=== PATIENT | male | born 1950 | race African-American/Black ===

== ENCOUNTER 2018-06-29 13:03 | Emergency (ER) | payer MEDICARE ==
[2018-06-29] MEDS ORDERED: Sodium Chloride 0.9% 1,000 ML ONE (13:32)
[2018-06-29] MEDS ORDERED: Ondansetron PF 4 MG/2 ML Vial ONE (13:32)
[2018-06-29] MEDS ORDERED: Morphine 4 MG/ML VIAL ONE (13:34)
[2018-06-29] MEDS ORDERED: Nitroglycerin 0.4 MG TAB (25 Tab Bottle) ONE (13:34)
[2018-06-29 13:57] LABS: #Lymphocytes 1.6 thou/uL (1.20-3.40); #Monocytes 0.3 thou/uL (0.11-0.59); #Neutrophils 2.5 thou/uL (1.40-6.50); %Eosinophils 0.8 % (0.0-10.0); %Lymphocytes 35.3 % (21.0-51.0); %Monocytes 6.2 % (0.0-10.0); %Neutrophils 56.7 % (42.0-75.0); Hemoglobin 13.7 g/dL (14.0-18.0); Mean Corpuscular Hemoglobin 29.8 pg (27.0-31.0); Mean Platelet Volume 7.5 fL (7.4-10.4); Platelet Count 154 thou/uL (130-400); RBC Distribution Width 12.6 % (11.5-14.5); Red Blood Cell (RBC) Count 4.59 mill/uL (4.70-6.10); White Blood Cell (WBC) Count 4.5 thou/uL (4.8-10.8)
[2018-06-29 14:09] LABS: ALT (SGPT) 15 U/L (8-55); AST (SGOT) 16 U/L (5-34); Albumin 4.6 g/dL (3.4-4.8); Alkaline Phosphatase 72 U/L (40-150); Anion Gap 16 mmol/L (10-20); BUN (Urea Nitrogen) 17 mg/dL (8.4-25.7); Bilirubin, Total 1.4 mg/dL (0.2-1.2); Calc. Creatinine Clearance 0 mL/min (70-130); Calcium 10.3 mg/dL (7.8-10.44); Carbon Dioxide 23 mmol/L (23-31); Chloride 102 mmol/L (98-107); Estimated GFR-MDRD 52; Globulin 2.9 g/dL (2.4-3.5); Glucose 141 mg/dL (80-115); Lipase 46 U/L (8-78); Potassium 4.4 mmol/L (3.5-5.1); Protein, Total 7.5 g/dL (5.8-8.1); Sodium 137 mmol/L (136-145)
[2018-06-29 14:42] LABS: Amphetamine Not Detected (NotDetected); Barbiturates Screen Not Detected (NotDetected); Benzodiazepine Screen Not Detected (NotDetected); Cocaine Metabolite Screen Detected (NotDetected); Medtox Control Line Valid? VALID (VALID); Methadone Not Detected (NotDetected); Methamphetamine Not Detected (NotDetected); Opiate Screen Detected (NotDetected); Oxycodone Screen Not Detected (NotDetected); Phencyclidine (PCP) Not Detected (NotDetected); THC/Cannabinoid Screen Detected (NotDetected); Tricyclic Screen Not Detected (NotDetected)
--- NOTE | 2018-06-29 15:12 | RAD ---
PORTABLE AP CHEST XRAY: DATE: 06/29/2018. HISTORY: Chest pain. COMPARISON: None available. FINDINGS: Cardiac silhouette and pulmonary vasculature are within normal limits. The lungs are clear. There i s mild elevation of the right hemidiaphragm. Osseous structures appear intact, although the osseous structures are not well evaluated due to underpenetrated technique of the exam. IMPRESSION: No acute cardiopulmonary process. POS: [facility]
== END 2018-06-29 15:20 | disposition short-term general hospital (02) ==
LOC: NAV ERS 13:03
DX: I10 Essential (primary) hypertension (principal); F14.10 Cocaine abuse, uncomplicated; F43.10 Post-traumatic stress disorder, unspecified; E11.9 Type 2 diabetes mellitus without complications; Z79.4 Long term (current) use of insulin; Z79.899 Other long term (current) drug therapy
CPT/HCPCS: 71045; 80053; 80306; 83690; 84484; 85025; 93005; 94760; 96361; 96374; 96375; J2270; J2405; J7050

== ENCOUNTER 2019-10-09 04:48 | Emergency (ER) | payer SELFPAY ==
[2019-10-09] MEDS ORDERED: Ketorolac Tromethamine 30 MG/ML VIAL ONE (05:46)
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
== END 2019-10-09 06:05 | disposition home or self-care (01) ==
LOC: NAV ERS 04:48
DX: E11.42 Type 2 diabetes mellitus with diabetic polyneuropathy (principal); E78.5 Hyperlipidemia, unspecified; E78.00 Pure hypercholesterolemia, unspecified; I10 Essential (primary) hypertension; F43.10 Post-traumatic stress disorder, unspecified; Z79.84 Long term (current) use of oral hypoglycemic drugs; Z79.899 Other long term (current) drug therapy
CPT/HCPCS: 96372; J1885

== ENCOUNTER 2020-01-08 16:13 | Emergency (ER) | payer OTHER, SELFPAY ==
[2020-01-10 11:40] LABS: SARS-CoV-2 MS2 Positive; SARS-CoV-2 N Gene Negative; SARS-CoV-2 S Gene Negative; SARS-CoV-2 orf1ab Negative
== END 2020-01-08 17:55 | disposition home or self-care (01) ==
LOC: NAV ERS 16:13
DX: Z20.828 Contact with and (suspected) exposure to other viral communicable diseases (principal); F43.10 Post-traumatic stress disorder, unspecified; E11.9 Type 2 diabetes mellitus without complications; I10 Essential (primary) hypertension; Z79.899 Other long term (current) drug therapy; Z79.84 Long term (current) use of oral hypoglycemic drugs
CPT/HCPCS: 87635; 99283; U0003

== ENCOUNTER 2020-06-12 17:55 | Inpatient (IN) | payer MEDICARE, OTHER ==
[2020-06-12] MEDS ORDERED: Dextrose 50% Abboject 50 ML SYRINGE SLOW IVP PRN ×2 (21:23→21:30)
[2020-06-12] MEDS ORDERED: cefTRIAXone\\ROCEPHIN 1 GM VIAL IVPB SCH (22:00)
[2020-06-12] MEDS ORDERED: Sodium Chloride 0.9% 30 ML ONE (23:01)
[2020-06-13 07:07] LABS: #Lymphocytes 0.9 thou/uL (1.20-3.40); #Monocytes 0.3 thou/uL (0.11-0.59); %Basophils 0.5 % (0.0-1.0); %Eosinophils 0.5 % (0.0-10.0); %Lymphocytes 12.4 % (21.0-51.0); %Monocytes 4.2 % (0.0-10.0); %Neutrophils 82.6 % (42.0-75.0); Hemoglobin 9.1 g/dL (14.0-18.0); Mean Corpuscular Hemoglobin 29.3 pg (27.0-31.0); Mean Corpuscular Volume 88.9 fL (78.0-98.0); Mean Platelet Volume 6.7 fL (7.4-10.4); Platelet Count 225 thou/uL (130-400); RBC Distribution Width 12.2 % (11.5-14.5); Red Blood Cell (RBC) Count 3.09 mill/uL (4.70-6.10); White Blood Cell (WBC) Count 7.3 thou/uL (4.8-10.8)
[2020-06-13 07:20] LABS: Anion Gap 15 mmol/L (10-20); BUN (Urea Nitrogen) 65 mg/dL (8.4-25.7); Calc. Creatinine Clearance 20 mL/min (70-130); Calcium 8.1 mg/dL (7.8-10.44); Carbon Dioxide 16 mmol/L (23-31); Chloride 111 mmol/L (98-107); Glucose 109 mg/dL (83-110); Sodium 137 mmol/L (136-145)
[2020-06-13] MEDS: glipiZIDE 5 MG TAB PO SCH ×2 (08:03→16:57)
[2020-06-13] MEDS: Calcitriol 0.25 MCG CAP PO SCH (08:04)
[2020-06-13] MEDS: Ferrous Sulfate 325 MG TAB PO SCH (08:04)
[2020-06-13] MEDS: Sodium Bicarbonate Tab 325 MG TAB PO SCH ×3 (08:08→20:55)
[2020-06-13] MEDS ORDERED: Lisinopril 10 MG TAB PO SCH (09:00)
[2020-06-13] MEDS: Lantus 1000 UNITS/10 ML VIAL SC SCH (09:05)
[2020-06-13] MEDS: Atorvastatin Calcium 10 MG TAB PO SCH (20:55)
[2020-06-13] MEDS: Tamsulosin HCl 0.4 MG CAP PO SCH (20:55)
[2020-06-13] MEDS: cefTRIAXone\\ROCEPHIN 1 GM in Sodium Chloride 0.9% 100 ML IVPB SCH (21:01)
--- NOTE | 2020-06-13 23:40 | HP ---
HISTORY OF PRESENT ILLNESS: The patient is a 70-year-old male with a past medical history positive for hypertension, type 2 diabetes, coronary artery disease, who was recently admitted to [facility] with chest pain, but was found to be in diabetic ketoacidosis with metabolic encephalopathy. He was also found to be in emweo-ch-yrncbxn kidney injury secondary to an acute diagnosis of Enterobacter bacteremia secondary to urinary tract infection. He responded to IV fluids and IV Rocephin, but his renal function never did return to normal and appears to have stabilized with a creatinine of 4 to 5. His diabetic ketoacidosis has resolved and his Accu-Cheks have returned to normal on Lantus and sliding scale insulin. He has been seen by Nephrology and felt that he will eventually require dialysis, but [facility] as an [facility] until that time. He did have some metabolic acidosis, which is being treated with bicarb and phosphate binder. His blood pressure has been well controlled. HOME MEDICATIONS: Lisinopril 20 mg daily, although renal has stated that FIDEL inhibitor should be restricted. He is also on Lantus 25 units every morning and glipizide 20 mg twice daily for his diabetes with a sliding scale moderate for control. Finally, he is on simvastatin 20 mg nightly for hyperlipidemia and coronary disease and on the above-mentioned 0.25 mcg daily and sodium bicarbonate 650 mg 3 times daily. His enterobacter urinary tract infection, he is finishing a course of Rocephin 1 g IV piggyback q. 24 hours for 7 days and he is on tamsulosin for chronic benign prostatic hypertrophy. He did have in addition to the DKA related hyponatremia and dehydration. PAST MEDICAL HISTORY: As mentioned above is positive for the above-mentioned diabetes, hypertension, coronary artery disease. PAST SURGICAL HISTORY: Positive for hernia repair. PSYCHIATRIC HISTORY: Positive for history of PTSD. ALLERGIES: HE HAS NO KNOWN ALLERGIES. SOCIAL HISTORY: He uses marijuana and drinks socially and uses cocaine and cigarettes. He lives at home alone. REVIEW OF SYSTEMS: HEENT: He denies any headaches, dizziness, change in vision, hearing, hoarseness or dysphagia. PULMONARY: He denies cough, sputum production, pneumonia, asthma, or tuberculosis. CARDIOVASCULAR: He denies chest pain, orthopnea, paroxysmal nocturnal dyspnea or edema. GASTROINTESTINAL: He denies nausea, vomiting, diarrhea, constipation, abdominal pain. GENITOURINARY: Denies dysuria, hematuria. He does have mild decreased stream and nocturia x1. NEUROLOGIC: He has no numbness or tingling in his arms or extremities. PHYSICAL EXAMINATION: GENERAL: Shows him to be an elderly white male in no acute distress, oriented x3 and cooperative. VITAL SIGNS: Show temperature 98.1, pulse 78, respirations 20, O2 saturations 95% on room air. HEENT: Pupils are equal, round, and reactive to light and accommodation. Sclerae anicteric. Conjunctivae pale. Oral mucous membranes well hydrated. NECK: Supple. There are no nodes or masses. JVP is not elevated. LUNGS: Clear. CARDIAC: Showed regular rhythm. ABDOMEN: Soft and nontender. EXTREMITIES: Extremities display no edema, clubbing, or cyanosis. NEUROLOGIC: Intact. LABORATORY DATA: Most recent laboratories showed sodium of 140, potassium 5.0, chloride 114, bicarb 17, BUN 72, creatinine 4.5 with a GFR of 16, glucose was 79. Phosphorus 3.2. BNP last week 168. Patient's urinalysis showed pyuria and bacteria and blood culture did show Enterobacter sensitive to Rocephin that the patient is on. ASSESSMENT: A 70-year-old man with a history of diabetes, chronic kidney disease stage 3 and coronary artery disease, who presented with diabetic ketoacidosis, metabolic acidosis and responded to IV fluids, but has had stabilization of his glomerular filtration rate at 16 with chronic kidney disease stage 4 to 5. He has become severely weakened with his recent admission. He was therefore admitted to inpatient rehab to be admitted to [facility] for continued PT. He will finish his course of Rocephin and will have his blood pressure tightly controlled, but his FIDLE inhibitor will be discontinued to hopefully decrease the strain on his kidneys and he was restarted on amlodipine for improved control of his diabetes and continued on his tamsulosin at night. His Rocephin, he will finish his oral course on June 18. He will continue on his glargine 25 units every morning and mild sliding scale as well as glipizide 20 mg twice daily, but this may need to be titrated down, because of his renal failure. He will have case management evaluate him for walker and equipment at home. He will be seen in PT/OT. Job ID: [id number]
[2020-06-14] MEDS: glipiZIDE 5 MG TAB PO SCH (08:21)
[2020-06-14] MEDS: Lantus 1000 UNITS/10 ML VIAL SC SCH (09:10)
[2020-06-14] MEDS: Ferrous Sulfate 325 MG TAB PO SCH (09:10)
[2020-06-14] MEDS: Amlodipine 5 MG TAB PO SCH (09:10)
[2020-06-14] MEDS: Sodium Bicarbonate Tab 325 MG TAB PO SCH ×3 (09:10→20:55)
[2020-06-14] MEDS: Calcitriol 0.25 MCG CAP PO SCH (09:10)
[2020-06-14] MEDS: HumaLOG 300 UNITS/3 ML VIAL SC PRN (12:10)
[2020-06-14] MEDS: Docusate 100 MG CAP PO SCH (20:55)
[2020-06-14] MEDS: Atorvastatin Calcium 10 MG TAB PO SCH (20:55)
[2020-06-14] MEDS: Tamsulosin HCl 0.4 MG CAP PO SCH (20:55)
[2020-06-14] MEDS: cefTRIAXone\\ROCEPHIN 1 GM in Sodium Chloride 0.9% 100 ML IVPB SCH (20:59)
[2020-06-15 06:05] LABS: Anion Gap 13 mmol/L (10-20); BUN (Urea Nitrogen) 58 mg/dL (8.4-25.7); Calc. Creatinine Clearance 22 mL/min (70-130); Calcium 8.5 mg/dL (7.8-10.44); Carbon Dioxide 23 mmol/L (23-31); Chloride 110 mmol/L (98-107); Glucose 101 mg/dL (83-110); Potassium 5.1 mmol/L (3.5-5.1); Sodium 141 mmol/L (136-145)
[2020-06-15] MEDS: Calcitriol 0.25 MCG CAP PO SCH (08:20)
[2020-06-15] MEDS: Ferrous Sulfate 325 MG TAB PO SCH (08:20)
[2020-06-15] MEDS: Sodium Bicarbonate Tab 325 MG TAB PO SCH ×3 (08:20→21:16)
[2020-06-15] MEDS: Docusate 100 MG CAP PO SCH ×2 (08:21→21:16)
[2020-06-15] MEDS: Lantus 1000 UNITS/10 ML VIAL SC SCH (08:22)
[2020-06-15] MEDS: Amlodipine 5 MG TAB PO SCH (08:23)
[2020-06-15] MEDS: HumaLOG 300 UNITS/3 ML VIAL SC PRN ×2 (12:55→21:17)
[2020-06-15] MEDS: Acetaminophen 325 MG TAB PO PRN (21:14)
[2020-06-15] MEDS: cefTRIAXone\\ROCEPHIN 1 GM in Sodium Chloride 0.9% 100 ML IVPB SCH (21:15)
[2020-06-15] MEDS: Atorvastatin Calcium 10 MG TAB PO SCH (21:16)
[2020-06-15] MEDS: Tamsulosin HCl 0.4 MG CAP PO SCH (21:16)
[2020-06-16 06:05] LABS: Anion Gap 11 mmol/L (10-20); BUN (Urea Nitrogen) 48 mg/dL (8.4-25.7); Calc. Creatinine Clearance 26 mL/min (70-130); Calcium 8.3 mg/dL (7.8-10.44); Carbon Dioxide 25 mmol/L (23-31); Chloride 110 mmol/L (98-107); Glucose 121 mg/dL (83-110); Potassium 4.8 mmol/L (3.5-5.1); Sodium 141 mmol/L (136-145)
[2020-06-16] MEDS: Docusate 100 MG CAP PO SCH ×2 (08:07→21:25)
[2020-06-16] MEDS: Calcitriol 0.25 MCG CAP PO SCH (08:07)
[2020-06-16] MEDS: Acetaminophen 325 MG TAB PO PRN ×2 (08:07→17:16)
[2020-06-16] MEDS: Sodium Bicarbonate Tab 325 MG TAB PO SCH ×3 (08:07→21:24)
[2020-06-16] MEDS: Amlodipine 5 MG TAB PO SCH (08:07)
[2020-06-16] MEDS: Ferrous Sulfate 325 MG TAB PO SCH (08:07)
[2020-06-16] MEDS: Lantus 1000 UNITS/10 ML VIAL SC SCH (08:09)
--- NOTE | 2020-06-16 18:58 | PRG ---
DATE OF SERVICE: 06/13/2020 SUBJECTIVE: The patient feels well. No complaints other than constipation. He has been working well with Therapy and has been eating and drinking everything on his plate. OBJECTIVE: VITAL SIGNS: Temperature is 97.2, pulse 83, respirations 18, O2 sats 99% on room air, and blood pressure is 137/74. Lungs: Clear. CARDIAC: Regular rhythm. ABDOMEN: Soft and nontender. LABORATORY DATA: White count 7300, hematocrit 27, and hemoglobin 9. Sodium is 141, potassium 5.1, chloride 110, bicarb 23, BUN 58, creatinine 4.19, and calcium 8.5. ASSESSMENT: 1. Resolving [id number]-acbootp renal failure, stabilizing, apparently at chronic kidney disease 4-5. 2. Diabetes, type 2, controlled to goal with resolved diabetic ketoacidosis. 3. Coronary artery disease, asymptomatic. 4. Urinary tract infection, now resolving on Rocephin. 5. Benign prostatic hypertrophy, improving on tamsulosin. PLAN: 1. Continue PT/ OT. 2. Finish course of Rocephin to finish on 06/18. 3. Continue to monitor oral intake. 4. Start docusate daily for constipation. 5. Continue Accu-Cheks to monitor and titrate and control diabetes. Job ID: [id number]
--- NOTE | 2020-06-16 19:00 | PRG ---
DATE OF SERVICE: 06/14/2020 SUBJECTIVE: The patient feels well. No complaints other than constipation. He is eating well, drinking well, working with Therapy. OBJECTIVE: VITAL SIGNS: Temperature is 97, pulse 88, respirations 18, O2 sats 99% on room air, and blood pressure 171/80. LABORATORY DATA: Electrolytes not done today. Accu-Chek shows hypoglycemia, though an insulin will be decreased tomorrow to 20 units subcu q.a.m. He is having good urine output. He will be continued on tamsulosin. He is having no further evidence of infection, being continued on Rocephin. ASSESSMENT: 1. Resolving urinary tract infection. 2. Stable benign prostatic hypertrophy. 3. Stable mzlwo-mk-uwufndb renal failure, stage 4. 4. Persistent constipation. 5. Hypertension, controlled to goal. PLAN: 1. Continue PT/OT. 2. Increase docusate to twice daily. 3. Repeat BMP in the a.m. 4. Decrease Lantus to 20 units subcu q.a.m. Job ID: [id number]
--- NOTE | 2020-06-16 19:09 | PRG ---
DATE OF SERVICE: 06/15/2020 SUBJECTIVE: The patient feels well. He has had a good bowel movement today and working with Therapy, feels stronger, is eating well. No complications. OBJECTIVE: VITAL SIGNS: Temperature is 97, pulse 94, respirations 20, O2 sats 99% on room air, and blood pressure is 146/67. LABORATORY DATA: Sodium 141, potassium 5.1, chloride 110, bicarb 23, BUN 58, creatinine 4.19, and GFR 17. ASSESSMENT: 1. Fairly stable vdkaq-zy-ymaqohh renal failure, stage 4. 2. Diabetes, insulin dependent, controlled on Lantus, mild sliding scale. 3. Deconditioning, working with Therapy. 4. Constipation, improved with docusate. 5. Urinary tract infection, finishing course of Rocephin and continue Rocephin until 06/18. PLAN: 1. Continue PT/OT. 2. Continue Lantus 20 units daily. 3. Continue to monitor oral intake. 4. Continue to monitor renal function closely. Job ID: [id number]
--- NOTE | 2020-06-16 19:12 | PRG ---
DATE OF SERVICE: 06/16/2020 SUBJECTIVE: The patient feels well, eating well, walking with Therapy, feels he is getting stronger. OBJECTIVE: His creatinine has improved greatly to 3.42 with a GFR increasing from 16 to 22, BUN is also decreased to 48, sodium is 141, potassium 4.8, chloride 110, and bicarb 25. His vital signs show temperature is 97.9, pulse 95, respirations 18, O2 sats 97% on room air, and blood pressure 176/76. ASSESSMENT: 1. Improving nqxhk-jd-lxosbxr renal failure. 2. Hypertension, worsen today. We will monitor closely. Increase oral intake. 3. Urinary tract infection, resolving on Rocephin until 06/18. 4. Deconditioning, improving greatly. PLAN: 1. Continue PT/OT. 2. Continue to monitor blood pressure closely and may need to increase amlodipine to 10 mg daily. 3. Repeat BMP in the a.m., it is improving daily now. 4. Continue tamsulosin for BPH and continue bicarb for improving renal failure. Job ID: [id number]
[2020-06-16] MEDS: Atorvastatin Calcium 10 MG TAB PO SCH (21:25)
[2020-06-16] MEDS: Tamsulosin HCl 0.4 MG CAP PO SCH (21:25)
[2020-06-16] MEDS: cefTRIAXone\\ROCEPHIN 1 GM in Sodium Chloride 0.9% 100 ML IVPB SCH (21:25)
[2020-06-16] MEDS: Gabapentin 100 MG CAP PO SCH (21:25)
[2020-06-17] MEDS: Ferrous Sulfate 325 MG TAB PO SCH (08:37)
[2020-06-17] MEDS: Amlodipine 5 MG TAB PO SCH (08:38)
[2020-06-17] MEDS: Lantus 1000 UNITS/10 ML VIAL SC SCH (08:38)
[2020-06-17] MEDS: Docusate 100 MG CAP PO SCH ×2 (08:38→21:44)
[2020-06-17] MEDS: Sodium Bicarbonate Tab 325 MG TAB PO SCH ×3 (08:38→21:43)
[2020-06-17] MEDS: Calcitriol 0.25 MCG CAP PO SCH (08:38)
--- NOTE | 2020-06-17 16:20 | PRG ---
DATE OF SERVICE: 06/17/2020 SUBJECTIVE: Mr. Coats is resting in bed. He is tolerating his antibiotics. He just finished his lunch. Denies any questions or concerns. OBJECTIVE: VITAL SIGNS: He is afebrile, heart rate 83, respirations 18, oxygen saturation 98% on room air, and blood pressure 152/67. CARDIOVASCULAR SYSTEM: S1 and S2 plus. RESPIRATORY SYSTEM: Normal vesicular breath sounds. ABDOMEN: Soft and nontender. Bowel sounds heard in all quadrants. EXTREMITIES: Without cyanosis or clubbing. CENTRAL NERVOUS SYSTEM: Generalized weakness, otherwise nonfocal. LABORATORY DATA: Blood sugars are 136, 110, 132, 94, and 77. IMPRESSION: 1. Diabetes mellitus, type 2. 2. Hypertension. 3. Coronary artery disease. 4. Enterobacter urinary tract infection. 5. Chronic kidney disease, stage 5. PLAN: 1. Continue current medications including antibiotics. 2. An 1800-calorie heart healthy ADA renal diet. 3. Accu-Cheks with sliding scale coverage. 4. DVT prophylaxis. 5. Decubitus precautions. 6. Stress ulcer prophylaxis. 7. Routine laboratory values. 8. Physical therapy. Job ID: [id number]
[2020-06-17] MEDS: Gabapentin 100 MG CAP PO SCH (21:43)
[2020-06-17] MEDS: cefTRIAXone\\ROCEPHIN 1 GM in Sodium Chloride 0.9% 100 ML IVPB SCH (21:44)
[2020-06-17] MEDS: Atorvastatin Calcium 10 MG TAB PO SCH (21:44)
[2020-06-17] MEDS: Tamsulosin HCl 0.4 MG CAP PO SCH (21:44)
[2020-06-17] MEDS: HumaLOG 300 UNITS/3 ML VIAL SC PRN (21:45)
[2020-06-18 06:06] VITALS: BMI 24.5
[2020-06-18] MEDS: HumaLOG 300 UNITS/3 ML VIAL SC PRN (06:06)
[2020-06-18] MEDS: Ferrous Sulfate 325 MG TAB PO SCH (08:43)
[2020-06-18] MEDS: Amlodipine 5 MG TAB PO SCH (08:43)
[2020-06-18] MEDS: Calcitriol 0.25 MCG CAP PO SCH (08:44)
[2020-06-18] MEDS: Docusate 100 MG CAP PO SCH ×2 (08:44→21:03)
[2020-06-18] MEDS: Sodium Bicarbonate Tab 325 MG TAB PO SCH ×3 (08:44→21:02)
[2020-06-18] MEDS: Lantus 1000 UNITS/10 ML VIAL SC SCH (08:46)
[2020-06-18] MEDS ORDERED: Lantus 1000 UNITS/10 ML VIAL SC SCH (14:45)
--- NOTE | 2020-06-18 15:49 | PRG ---
DATE OF SERVICE: 06/18/2020 SUBJECTIVE: Mr. Coats is resting comfortably. Denies any concerns. Just finished his lunch. Tolerating his antibiotics. Discussed with nursing. OBJECTIVE: VITAL SIGNS: He is afebrile. Heart rate is 82, respirations 18, oxygen saturation 99% on room air, blood pressure 145/63. CARDIOVASCULAR: S1 and S2 plus. RESPIRATORY: Normal vesicular breath sounds. ABDOMEN: Soft, nontender. Bowel sounds heard in all quadrants. EXTREMITIES: Without cyanosis or clubbing. CENTRAL NERVOUS SYSTEM: Generalized weakness, otherwise nonfocal. LABORATORY DATA: Blood sugars are 132, 94, 77, 181, and 157. IMPRESSION: 1. Resolving urinary tract infection. His last dose of IV antibiotic was today. 2. Diabetes mellitus type 2. 3. Hypertension. 4. Coronary artery disease. 5. Chronic kidney disease stage 5. PLAN: 1. Continue current medications. 2. 1800 calorie heart healthy ADA renal diet. 3. Accu-Cheks with sliding scale coverage. 4. Physical therapy. 5. Discharge planning. 6. Routine laboratory values. 7. Dr. Elmer eng. Job ID: [id number]
[2020-06-18] MEDS ORDERED: Sodium Chloride 0.9% 20 ML ONE (20:06)
[2020-06-18] MEDS: Gabapentin 100 MG CAP PO SCH (21:03)
[2020-06-18] MEDS: cefTRIAXone\\ROCEPHIN 1 GM in Sodium Chloride 0.9% 100 ML IVPB SCH (21:04)
[2020-06-18] MEDS: Tamsulosin HCl 0.4 MG CAP PO SCH (21:04)
[2020-06-18] MEDS: Atorvastatin Calcium 10 MG TAB PO SCH (21:04)
[2020-06-19 05:32] LABS: Band 6 % (5-11); Eosinophils 2 % (0-10); Hemoglobin 8.6 g/dL (14.0-18.0); Lymphocytes 14 % (21-51); MDiff Complete? YES; Mean Corpuscular HGB CONC 32.6 g/dL (32.0-36.0); Mean Corpuscular Volume 88.9 fL (78.0-98.0); Mean Platelet Volume 6.9 fL (7.4-10.4); Monocytes 6 % (0-10); Neutrophil 68 % (42-75); Platelet Count 187 thou/uL (130-400); Platelet Morphology Comment Appears Adequate; RBC Morphology Normal; Reactive Lymphocytes 4 % (0-10); Red Blood Cell (RBC) Count 2.98 mill/uL (4.70-6.10); White Blood Cell (WBC) Count 5.6 thou/uL (4.8-10.8)
[2020-06-19 05:39] LABS: Anion Gap 12 mmol/L (10-20); BUN (Urea Nitrogen) 43 mg/dL (8.4-25.7); Calc. Creatinine Clearance 29 mL/min (70-130); Calcium 8.7 mg/dL (7.8-10.44); Carbon Dioxide 28 mmol/L (23-31); Chloride 106 mmol/L (98-107); Glucose 120 mg/dL (83-110); Potassium 4.5 mmol/L (3.5-5.1); Sodium 141 mmol/L (136-145)
[2020-06-19] MEDS: Sodium Bicarbonate Tab 325 MG TAB PO SCH ×3 (08:33→21:42)
[2020-06-19] MEDS: Calcitriol 0.25 MCG CAP PO SCH (08:33)
[2020-06-19] MEDS: Ferrous Sulfate 325 MG TAB PO SCH (08:33)
[2020-06-19] MEDS: Acetaminophen 325 MG TAB PO PRN (08:34)
[2020-06-19] MEDS: Amlodipine 5 MG TAB PO SCH (08:34)
[2020-06-19] MEDS: Docusate 100 MG CAP PO SCH ×2 (08:34→21:43)
[2020-06-19] MEDS: Lantus 1000 UNITS/10 ML VIAL SC SCH (08:36)
[2020-06-19] MEDS: HumaLOG 300 UNITS/3 ML VIAL SC PRN ×2 (12:04→21:44)
--- NOTE | 2020-06-19 13:24 | PRG ---
DATE OF SERVICE: 06/19/2020 SUBJECTIVE: Mr. Coats is doing well. He finished his IV antibiotics. He continues to work with therapy. We will await case conference tomorrow as to what stage he is in and when he might be able to go home. OBJECTIVE: VITAL SIGNS: He is afebrile, heart rate 86, respirations 18, blood pressure 146/59, and oxygen saturation is 99% on room air. CARDIOVASCULAR SYSTEM: S1 and S2 plus. RESPIRATORY SYSTEM: Normal vesicular breath sounds. ABDOMEN: Soft, nontender. Bowel sounds heard in all quadrants. EXTREMITIES: Without cyanosis or clubbing. CENTRAL NERVOUS SYSTEM: Improving deconditioning. LABORATORY VALUES: White count is 5.6, H and H are 8.6 and 26.5. Sodium 141, potassium 4.5, BUN and creatinine are 43 and 2.78 with the GFR of 27. Blood sugars are 162, 187, 120, 119, and 158. IMPRESSION: 1. Resolved urinary tract infection. 2. Chronic kidney disease, stage 4 to 5. 3. Diabetes mellitus, type 2. 4. Hypertension. 5. Coronary artery disease. 6. Improving deconditioning. PLAN: 1. Continue current medications. 2. 1800-calorie, heart healthy, ADA diet. 3. Accu-Cheks with sliding scale coverage. 4. DVT prophylaxis. 5. Decubitus precautions. 6. Stress ulcer prophylaxis. 7. Routine laboratory values. Job ID: [id number]
[2020-06-19] MEDS: Atorvastatin Calcium 10 MG TAB PO SCH (21:42)
[2020-06-19] MEDS: Tamsulosin HCl 0.4 MG CAP PO SCH (21:43)
[2020-06-19] MEDS: Gabapentin 100 MG CAP PO SCH (21:43)
[2020-06-20] MEDS: Amlodipine 5 MG TAB PO SCH (08:31)
[2020-06-20] MEDS: Docusate 100 MG CAP PO SCH ×2 (08:32→21:39)
[2020-06-20] MEDS: Acetaminophen 325 MG TAB PO PRN ×3 (08:32→21:38)
[2020-06-20] MEDS: Ferrous Sulfate 325 MG TAB PO SCH (08:32)
[2020-06-20] MEDS: Sodium Bicarbonate Tab 325 MG TAB PO SCH ×3 (08:33→21:38)
[2020-06-20] MEDS: Calcitriol 0.25 MCG CAP PO SCH (08:33)
[2020-06-20] MEDS: Lantus 1000 UNITS/10 ML VIAL SC SCH (08:35)
[2020-06-20] MEDS: HumaLOG 300 UNITS/3 ML VIAL SC PRN ×2 (12:12→17:36)
--- NOTE | 2020-06-20 13:35 | PRG ---
DATE OF SERVICE: 06/20/2020 SUBJECTIVE: Mr. Coats is doing the same. Denies any concerns. Slowly improving with therapy. OBJECTIVE: VITAL SIGNS: He is afebrile, heart rate 87, respirations 16, oxygen saturation 99% on room air, and blood pressure 140/58. CARDIOVASCULAR SYSTEM: S1 and S2 plus. RESPIRATORY SYSTEM: Normal vesicular breath sounds. ABDOMEN: Soft, nontender. Bowel sounds heard in all quadrants. EXTREMITIES: Without cyanosis or clubbing. CENTRAL NERVOUS SYSTEM: Generalized weakness, otherwise nonfocal. LABORATORY DATA: Blood sugars are 158, 78, 243, and 122. IMPRESSION: 1. Resolved urinary tract infection. 2. Deconditioning, slowly improving. 3. Chronic kidney disease, stage 4 to 5. 4. Diabetes mellitus, type 2. 5. Hypertension. 6. Coronary artery disease. 7. Improving deconditioning. PLAN: 1. Continue current medications. 2. 1800-calorie, heart healthy, ADA, renal diet. 3. Accu-Cheks with sliding scale coverage. 4. Physical therapy. 5. Routine laboratory values. 6. DVT and stress ulcer prophylaxis. 7. No family at bedside. Job ID: [id number]
[2020-06-20] MEDS: Gabapentin 100 MG CAP PO SCH (21:38)
[2020-06-20] MEDS: Tamsulosin HCl 0.4 MG CAP PO SCH (21:39)
[2020-06-20] MEDS: Atorvastatin Calcium 10 MG TAB PO SCH (21:39)
[2020-06-21] MEDS: Ferrous Sulfate 325 MG TAB PO SCH (09:02)
[2020-06-21] MEDS: Amlodipine 5 MG TAB PO SCH (09:03)
[2020-06-21] MEDS: Calcitriol 0.25 MCG CAP PO SCH (09:04)
[2020-06-21] MEDS: Docusate 100 MG CAP PO SCH ×2 (09:04→20:14)
[2020-06-21] MEDS: Sodium Bicarbonate Tab 325 MG TAB PO SCH ×3 (09:05→20:15)
[2020-06-21] MEDS: Lantus 1000 UNITS/10 ML VIAL SC SCH (09:05)
--- NOTE | 2020-06-21 13:50 | PRG ---
DATE OF SERVICE: 06/21/2020 SUBJECTIVE: Mr. Coats is doing well. Denies any complaints. Discussed with Therapy. He is ready to go home. The patient states that family to pick him up. [facility], so he states he does not need any refills. Therapy recommends PT and OT. The patient apparently has chosen [facility]. I advised him that his PCP will need to manage his home health and I will do the initial order. The patient does qualify for home health as he is considered bed bound and Therapy here recommends continued PT/OT at home. He just finished his antibiotics for UTI. He will also need [facility] visits to monitor his vital signs and for any recurrence of UTI. Please use this note as a [id number] documentation. OBJECTIVE: VITAL SIGNS: He is afebrile, heart rate 84, respirations 18, oxygen saturation 97% on room air, blood pressure 110/61. CARDIOVASCULAR SYSTEM: S1 and S2 plus. RESPIRATORY SYSTEM: Normal vesicular breath sounds. ABDOMEN: Soft, nontender. Bowel sounds heard in all quadrants. EXTREMITIES: Without cyanosis or clubbing. CENTRAL NERVOUS SYSTEM: Generalized weakness, otherwise nonfocal. IMPRESSION: 1. Chronic kidney disease, likely stage 5 now. 2. Diabetes mellitus type 2. 3. Hypertension. 4. Coronary artery disease. 5. Improving deconditioning. 6. Resolved urinary tract infection. PLAN: 1. Continue current medications. 2. 1800 calorie heart healthy ADA diet. 3. Accu-Cheks with sliding scale coverage. 4. Discharge planning and Therapy here recommends home health with PT and OT. The patient will also need [facility] visit to document vital signs given his coronary artery disease and chronic kidney disease as well as monitor for any recurrence of UTI. Dr. Rivera is on-call from 5 p.m. velasquez done all the discharge med list and the patient is ready for discharge any time, his family can pick him up tomorrow. Job ID: [id number]
[2020-06-21] MEDS: Atorvastatin Calcium 10 MG TAB PO SCH (20:14)
[2020-06-21] MEDS: Gabapentin 100 MG CAP PO SCH (20:14)
[2020-06-21] MEDS: Tamsulosin HCl 0.4 MG CAP PO SCH (20:15)
[2020-06-21] MEDS: HumaLOG 300 UNITS/3 ML VIAL SC PRN (22:07)
[2020-06-22 07:46] VITALS: BP 107/58; TEMP 98.4
[2020-06-22] MEDS: Lantus 1000 UNITS/10 ML VIAL SC SCH (08:47)
[2020-06-22] MEDS: Ferrous Sulfate 325 MG TAB PO SCH (08:47)
[2020-06-22] MEDS: Amlodipine 5 MG TAB PO SCH (08:47)
[2020-06-22] MEDS: Docusate 100 MG CAP PO SCH (08:47)
[2020-06-22] MEDS: Calcitriol 0.25 MCG CAP PO SCH (08:47)
[2020-06-22] MEDS: Sodium Bicarbonate Tab 325 MG TAB PO SCH (08:48)
== END 2020-06-22 10:00 | disposition home or self-care (01) | DRG 948 ==
LOC: NAV ACUTE 17:55
PROVIDERS: ADMIT Internal Medicine; ATTEND Internal Medicine
DX: R53.1 Weakness (principal); N17.9 Acute kidney failure, unspecified; N39.0 Urinary tract infection, site not specified; N18.4 Chronic kidney disease, stage 4 (severe); E11.22 Type 2 diabetes mellitus with diabetic chronic kidney disease; I25.10 Atherosclerotic heart disease of native coronary artery without angina pectoris; I12.9 Hypertensive chronic kidney disease with stage 1 through stage 4 chronic kidney disease, or unspecified chronic kidney disease; N40.0 Benign prostatic hyperplasia without lower urinary tract symptoms; K59.00 Constipation, unspecified; R53.81 Other malaise; B96.89 Other specified bacterial agents as the cause of diseases classified elsewhere
CPT/HCPCS: 36415; 36416; 80048; 85025; 87040; J0696; J1815; J3490

== ENCOUNTER 2020-08-09 15:15 | Emergency (ER) | payer OTHER, MEDICARE ==
--- NOTE | 2020-08-09 15:59 | RAD ---
Chest 2 views HISTORY: Chest pain. COMPARISON: 06/04/2020. FINDINGS: Cardiac silhouette and pulmonary vasculature are unremarkable. Mediastinum is midline with aortic calcification. Lungs remain hyperinflated. Parenchymal scarring at the left lateral lung base is stable. No lobar consolidation, pleural fluid, or pneumothorax. IMPRESSION : No acute abnormalities are demonstrated.
[2020-08-09 16:09] LABS: Acetaminophen Less than 6.0 mcg/mL (10.0-30.0); Alcohol Less than 10 mg/dL (Less than 10); Salicylate Less than 8.0 mg/dL (15.0-30.0)
[2020-08-09 16:11] LABS: #Basophils 0.1 thou/uL (0.0-0.2); #Eosinphils 0.1 thou/uL (0.0-0.7); #Lymphocytes 1.4 thou/uL (1.20-3.40); #Monocytes 0.2 thou/uL (0.11-0.59); #Neutrophils 1.9 thou/uL (1.40-6.50); %Basophils 1.5 % (0.0-1.0); %Eosinophils 1.8 % (0.0-10.0); %Lymphocytes 39.5 % (21.0-51.0); %Monocytes 5.9 % (0.0-10.0); %Neutrophils 51.3 % (42.0-75.0); Hemoglobin 10.9 g/dL (14.0-18.0); Mean Corpuscular HGB CONC 33.3 g/dL (32.0-36.0); Mean Corpuscular Volume 90.2 fL (78.0-98.0); Mean Platelet Volume 7.9 fL (7.4-10.4); Platelet Count 131 thou/uL (130-400); RBC Distribution Width 13.9 % (11.5-14.5); Red Blood Cell (RBC) Count 3.64 mill/uL (4.70-6.10); White Blood Cell (WBC) Count 3.6 thou/uL (4.8-10.8)
[2020-08-09 16:13] LABS: ALT (SGPT) 18 U/L (8-55); AST (SGOT) 15 U/L (5-34); Alkaline Phosphatase 62 U/L (40-110); Anion Gap 15 mmol/L (10-20); BUN (Urea Nitrogen) 26 mg/dL (8.4-25.7); Bilirubin, Total 1.1 mg/dL (0.2-1.2); CK (CPK) 90 U/L (30-200); Calc. Creatinine Clearance 0 mL/min (70-130); Calcium 8.8 mg/dL (7.8-10.44); Carbon Dioxide 24 mmol/L (23-31); Chloride 106 mmol/L (98-107); Globulin 3.2 g/dL (2.4-3.5); Glucose 241 mg/dL (83-110); Lipase 74 U/L (8-78); Magnesium 1.9 mg/dL (1.6-2.6); Potassium 4.5 mmol/L (3.5-5.1); Protein, Total 7.2 g/dL (5.8-8.1); Sodium 140 mmol/L (136-145)
[2020-08-09 16:20] LABS: Bilirubin Negative (Negative); Blood, Urine Negative (Negative); Clarity Slightly Cloudy (Clear); Glucose, Urine (Dipstick) 100 mg/dL (Negative); Ketone, Urine Negative (Negative); Leukocyte Moderate (Negative); Nitrite Positive (Negative); Protein, Urine (Dipstick) Negative (Neg-Trace)
[2020-08-09 16:32] LABS: Cocaine Metabolite Screen Detected (NotDetected)
[2020-08-09 16:33] LABS: Amphetamine Not Detected (NotDetected); Barbiturates Screen Not Detected (NotDetected); Benzodiazepine Screen Not Detected (NotDetected); Medtox Control Line Valid? VALID (VALID); Methadone Not Detected (NotDetected); Methamphetamine Not Detected (NotDetected); Opiate Screen Not Detected (NotDetected); Oxycodone Screen Not Detected (NotDetected); Phencyclidine (PCP) Not Detected (NotDetected); THC/Cannabinoid Screen Not Detected (NotDetected); Tricyclic Screen Not Detected (NotDetected)
[2020-08-09 16:37] LABS: RBC Morphology Normal
[2020-08-09 16:46] LABS: Bacteria/HPF 3+ HPF (None Seen); RBC/HPF 0-3 HPF (0-3); Squamous Epithelial None Seen HPF (0-3)
== END 2020-08-09 18:52 | disposition home or self-care (01) ==
LOC: NAV ERS 15:15
DX: F14.10 Cocaine abuse, uncomplicated (principal); E78.5 Hyperlipidemia, unspecified; N39.0 Urinary tract infection, site not specified; E11.65 Type 2 diabetes mellitus with hyperglycemia; I10 Essential (primary) hypertension; E78.00 Pure hypercholesterolemia, unspecified; Z79.899 Other long term (current) drug therapy
CPT/HCPCS: 71046; 80053; 80306; 80307; 81003; 81015; 82550; 83690; 83735; 83880; 84484; 85025; 93005; 94760

== ENCOUNTER 2020-09-09 06:59 | Emergency (ER) | payer OTHER ==
[2020-09-09 07:48] LABS: %Basophils 0.6 % (0.0-1.0); %Eosinophils 0.6 % (0.0-10.0); %Lymphocytes 21.2 % (21.0-51.0); %Monocytes 4.8 % (0.0-10.0); %Neutrophils 72.8 % (42.0-75.0); Hemoglobin 13.1 g/dL (14.0-18.0); Manual Diff?? NO; Mean Corpuscular Hemoglobin 29.8 pg (27.0-31.0); Mean Corpuscular Volume 90.2 fL (78.0-98.0); Mean Platelet Volume 9.8 fL (7.4-10.4); Platelet Count 128 thou/uL (130-400)
[2020-09-09 07:49] LABS: #Lymphocytes 1.1 thou/uL (1.20-3.40); #Monocytes 0.2 thou/uL (0.11-0.59); #Neutrophils 3.6 thou/uL (1.40-6.50)
[2020-09-09 08:03] LABS: ALT (SGPT) 16 U/L (8-55); AST (SGOT) 18 U/L (5-34); Albumin 4.3 g/dL (3.4-4.8); Alkaline Phosphatase 64 U/L (40-110); Anion Gap 15 mmol/L (10-20); BUN (Urea Nitrogen) 26 mg/dL (8.4-25.7); Bilirubin, Total 1.4 mg/dL (0.2-1.2); Calc. Creatinine Clearance 0 mL/min (70-130); Calcium 9.4 mg/dL (7.8-10.44); Carbon Dioxide 22 mmol/L (23-31); Chloride 106 mmol/L (98-107); Globulin 3.1 g/dL (2.4-3.5); Glucose 114 mg/dL (83-110); Potassium 4.3 mmol/L (3.5-5.1); Protein, Total 7.4 g/dL (5.8-8.1); Sodium 139 mmol/L (136-145)
[2020-09-09] MEDS ORDERED: Sodium Chloride 0.9% 1,000 ML ONE (08:13)
[2020-09-09 08:58] LABS: Bilirubin Negative (Negative); Blood, Urine Negative (Negative); Clarity Clear (Clear); Glucose, Urine (Dipstick) Negative (Negative); Ketone, Urine Negative (Negative); Leukocyte Negative (Negative); Nitrite Negative (Negative); Protein, Urine (Dipstick) Negative (Neg-Trace); Urobilinogen 0.2 mg/dL (Less than 2)
[2020-09-09 09:06] LABS: THC/Cannabinoid Screen Detected (NotDetected)
[2020-09-09 09:07] LABS: Amphetamine Not Detected (NotDetected); Barbiturates Screen Not Detected (NotDetected); Benzodiazepine Screen Not Detected (NotDetected); Cocaine Metabolite Screen Detected (NotDetected); Medtox Control Line Valid? VALID (VALID); Methadone Not Detected (NotDetected); Methamphetamine Not Detected (NotDetected); Opiate Screen Not Detected (NotDetected); Oxycodone Screen Not Detected (NotDetected); Phencyclidine (PCP) Not Detected (NotDetected); Tricyclic Screen Not Detected (NotDetected)
== END 2020-09-09 15:00 | disposition home or self-care (01) ==
LOC: NAV ERS 06:59
DX: E86.0 Dehydration (principal); N28.9 Disorder of kidney and ureter, unspecified; R32 Unspecified urinary incontinence; E78.5 Hyperlipidemia, unspecified; E78.00 Pure hypercholesterolemia, unspecified; E11.9 Type 2 diabetes mellitus without complications; I10 Essential (primary) hypertension; Z79.4 Long term (current) use of insulin; Z79.899 Other long term (current) drug therapy
CPT/HCPCS: 36416; 70450; 71045; 80053; 80306; 81003; 83605; 84484; 85025; 93005; J7050

== ENCOUNTER 2020-12-05 09:13 | Emergency (ER) | payer OTHER ==
[2020-12-05] MEDS ORDERED: Dextrose 5 %-0.45 % NaCl 1,000 ML ONE (09:26)
[2020-12-05 10:04] LABS: ALT (SGPT) 16 U/L (8-55); AST (SGOT) 16 U/L (5-34); Albumin 4.1 g/dL (3.4-4.8); Alkaline Phosphatase 66 U/L (40-110); Anion Gap 13 mmol/L (10-20); BUN (Urea Nitrogen) 31 mg/dL (8.4-25.7); Bilirubin, Total 0.9 mg/dL (0.2-1.2); Calc. Creatinine Clearance 0 mL/min (70-130); Calcium 8.5 mg/dL (7.8-10.44); Carbon Dioxide 22 mmol/L (23-31); Chloride 112 mmol/L (98-107); Globulin 2.5 g/dL (2.4-3.5); Potassium 3.4 mmol/L (3.5-5.1); Protein, Total 6.6 g/dL (5.8-8.1); Sodium 144 mmol/L (136-145)
[2020-12-05 10:12] LABS: Glucose 54 mg/dL (83-110)
[2020-12-05 10:15] LABS: Hemoglobin 11.6 g/dL (14.0-18.0); Mean Corpuscular HGB CONC 31.5 g/dL (32.0-36.0); Mean Corpuscular Hemoglobin 29.1 pg (27.0-31.0); Mean Corpuscular Volume 92.3 fL (78.0-98.0); RBC Distribution Width 14.2 % (11.5-14.5); Red Blood Cell (RBC) Count 3.99 mill/uL (4.70-6.10); White Blood Cell (WBC) Count 4.9 thou/uL (4.8-10.8)
[2020-12-05] MEDS ORDERED: Dextrose 50% Abboject 50 ML SYRINGE ONE (10:17)
[2020-12-05 10:21] LABS: #Lymphocytes 0.9 thou/uL (1.20-3.40); #Monocytes 0.2 thou/uL (0.11-0.59); #Neutrophils 3.7 thou/uL (1.40-6.50); %Basophils 0.3 % (0.0-1.0); %Eosinophils 0.5 % (0.0-10.0); %Lymphocytes 17.7 % (21.0-51.0); %Monocytes 4.9 % (0.0-10.0); %Neutrophils 76.6 % (42.0-75.0); Mean Platelet Volume 7.5 fL (7.4-10.4); Platelet Count 114 thou/uL (130-400)
[2020-12-05 10:22] LABS: Platelet Morphology Comment Appears Decreased
[2020-12-05 10:44] LABS: Bilirubin Negative (Negative); Blood, Urine Negative (Negative); Clarity Clear (Clear); Glucose, Urine (Dipstick) Negative (Negative); Ketone, Urine Negative (Negative); Leukocyte Negative (Negative); Nitrite Negative (Negative); Protein, Urine (Dipstick) Negative (Neg-Trace); Specific Gravity, Urine 1.015 (1.005-1.030)
== END 2020-12-05 13:52 | disposition home or self-care (01) ==
LOC: NAV ERS 09:13
DX: E11.649 Type 2 diabetes mellitus with hypoglycemia without coma (principal); E78.5 Hyperlipidemia, unspecified; E78.00 Pure hypercholesterolemia, unspecified; Z79.4 Long term (current) use of insulin; Z79.899 Other long term (current) drug therapy
CPT/HCPCS: 36416; 71045; 80053; 81003; 85025; 96374; J7042

== ENCOUNTER 2022-11-21 20:24 | Emergency (ER) | payer OTHER ==
[2022-11-21 21:37] LABS: Amphetamine Not Detected (NotDetected); Barbiturates Screen Not Detected (NotDetected); Benzodiazepine Screen Not Detected (NotDetected); Cocaine Metabolite Screen Detected (NotDetected); Methadone Not Detected (NotDetected); Methamphetamine Not Detected (NotDetected); Opiate Screen Not Detected (NotDetected); Oxycodone Screen Not Detected (NotDetected); Phencyclidine (PCP) Not Detected (NotDetected); THC/Cannabinoid Screen Not Detected (NotDetected); Tricyclic Screen Not Detected (NotDetected)
[2022-11-21 21:49] LABS: Bilirubin Negative (Negative); Blood, Urine Moderate (Negative); Clarity Turbid (Clear); Glucose, Urine (Dipstick) Negative (Negative); Ketone, Urine Negative (Negative); Leukocyte Large (Negative); Nitrite Negative (Negative); Protein, Urine (Dipstick) > or equal to 300 mg/dL (Neg-Trace); Urobilinogen 0.2 mg/dL (Less than 2); pH, Urine 7.5 (5.0-9.0)
[2022-11-21 21:54] LABS: WBC/HPF Greater Than 50 HPF (0-3)
[2022-11-21 21:55] LABS: Bacteria/HPF 4+ HPF (None Seen); Squamous Epithelial None Seen HPF (0-3)
[2022-11-21] MEDS ORDERED: Cipro 250 MG TAB ONE (22:04)
== END 2022-11-21 22:14 | disposition home or self-care (01) ==
LOC: NAV ERS 20:24
DX: N39.0 Urinary tract infection, site not specified (principal); I10 Essential (primary) hypertension; E11.9 Type 2 diabetes mellitus without complications
CPT/HCPCS: 80306; 81001; 99283

== ENCOUNTER 2023-04-08 14:46 | Inpatient (IN) | payer OTHER, MEDICARE ==
[2023-04-08] MEDS ORDERED: Ondansetron ODT 4 MG TAB PO PRN (16:46)
[2023-04-08] MEDS ORDERED: Acetaminophen 650 MG Suppository PR PRN (16:46)
[2023-04-08] MEDS ORDERED: Bisacodyl 10 MG SUPP PR PRN (16:46)
[2023-04-08] MEDS ORDERED: Senokot S 8.6-50 MG TAB PO PRN (16:46)
[2023-04-08] MEDS ORDERED: Bisacodyl 5 MG TAB PO PRN (16:46)
[2023-04-08] MEDS ORDERED: cloNIDine 0.1 MG TAB PO PRN (16:46)
[2023-04-08] MEDS ORDERED: Calcium Carbonate 500 MG ChewTAB PO PRN (16:46)
[2023-04-08] MEDS ORDERED: Benzonatate 100 MG CAP PO PRN (16:46)
[2023-04-08] MEDS ORDERED: Benzocaine/Menthol 1 LOZ LOZ PO PRN (16:46)
[2023-04-08] MEDS ORDERED: Guaifenesin DM 100-10/5 ML UDCUP PO PRN (16:46)
[2023-04-08] MEDS ORDERED: Sodium Chloride 0.65% Nasal 44 ML BOT EA NARE PRN (16:46)
[2023-04-08] MEDS ORDERED: Artificial Tear Sol 15 ML BOT EA EYE PRN (16:46)
[2023-04-08] MEDS ORDERED: FLU VACC QS2023(65UP)/MF59C/PF 60 MCG/0.5 ML SYRINGE IM ONE (18:00)
[2023-04-08] MEDS: Acetaminophen 325 MG TAB PO PRN (18:26)
[2023-04-08] MEDS ORDERED: Lantus 1000 UNITS/10 ML VIAL SC SCH (21:00)
[2023-04-08] MEDS: Cefdinir 300 MG CAP PO SCH (21:10)
[2023-04-08] MEDS: Gabapentin 100 MG CAP PO SCH (21:10)
[2023-04-08] MEDS: Tamsulosin HCl 0.4 MG CAP PO SCH (21:10)
[2023-04-08] MEDS: Sodium Bicarbonate Tab 325 MG TAB PO SCH (21:10)
[2023-04-08] MEDS: Atorvastatin Calcium 10 MG TAB PO SCH (21:11)
[2023-04-08] MEDS: Famotidine 20 MG TAB PO SCH (21:11)
[2023-04-09] MEDS ORDERED: Dextrose 50% Abboject 50 ML SYRINGE SLOW IVP PRN (08:35)
[2023-04-09] MEDS ORDERED: Glucagon 1 MG/ML KIT IM PRN (08:35)
[2023-04-09 08:56] LABS: #Eosinphils 0.1 thou/uL (0.0-0.7); #Lymphocytes 1.5 thou/uL (1.20-3.40); #Monocytes 0.2 thou/uL (0.11-0.59); #Neutrophils 3.9 thou/uL (1.40-6.50); %Basophils 0.5 % (0.0-1.0); %Eosinophils 1.8 % (0.0-10.0); %Lymphocytes 25.8 % (21.0-51.0); %Neutrophils 67.8 % (42.0-75.0); Hematocrit 25.9 % (42.0-52.0); Hemoglobin 8.5 g/dL (14.0-18.0); Mean Corpuscular Hemoglobin 29.2 pg (27.0-31.0); Mean Corpuscular Volume 88.6 fl (78.0-98.0); Mean Platelet Volume 6.2 fL (7.4-10.4); Platelet Count 295 10x3/uL (130-400); RBC Distribution Width 15.3 % (11.5-14.5); Red Blood Cell (RBC) Count 2.92 mill/uL (4.70-6.10); White Blood Cell (WBC) Count 5.7 10x3/uL (4.8-10.8)
[2023-04-09] MEDS: Sodium Bicarbonate Tab 325 MG TAB PO SCH ×3 (08:58→21:00)
[2023-04-09] MEDS: Famotidine 20 MG TAB PO SCH ×2 (08:58→20:59)
[2023-04-09] MEDS: Phenazopyridine HCl 95 MG TAB PO SCH ×2 (08:58→20:59)
[2023-04-09] MEDS: Cefdinir 300 MG CAP PO SCH ×2 (08:58→20:59)
[2023-04-09 09:07] LABS: Anion Gap 15 mmol/L (10-20); BUN (Urea Nitrogen) 47 mg/dL (8.4-25.7); Calc. Creatinine Clearance 25 mL/min (70-130); Calcium 8.7 mg/dL (7.8-10.44); Carbon Dioxide 23 mmol/L (23-31); Chloride 105 mmol/L (98-107); Estimated GFR 21; Glucose 194 mg/dL (83-110); Potassium 4.8 mmol/L (3.5-5.1); Sodium 138 mmol/L (136-145)
[2023-04-09] MEDS: Acetaminophen 325 MG TAB PO PRN (11:59)
[2023-04-09] MEDS: HumaLOG 300 UNITS/3 ML VIAL SC PRN ×2 (12:00→17:12)
[2023-04-09] MEDS: Lantus 1000 UNITS/10 ML VIAL SC SCH (20:58)
[2023-04-09] MEDS: Tamsulosin HCl 0.4 MG CAP PO SCH (20:59)
[2023-04-09] MEDS: Atorvastatin Calcium 10 MG TAB PO SCH (20:59)
[2023-04-09] MEDS: Gabapentin 100 MG CAP PO SCH (21:00)
[2023-04-10] MEDS: HumaLOG 300 UNITS/3 ML VIAL SC PRN ×2 (06:31→11:49)
[2023-04-10] MEDS: Famotidine 20 MG TAB PO SCH ×2 (08:39→19:54)
[2023-04-10] MEDS: Phenazopyridine HCl 95 MG TAB PO SCH ×2 (08:40→19:54)
[2023-04-10] MEDS: Cefdinir 300 MG CAP PO SCH ×2 (08:40→19:54)
[2023-04-10] MEDS: Sodium Bicarbonate Tab 325 MG TAB PO SCH ×3 (08:40→19:53)
[2023-04-10] MEDS: Acetaminophen 325 MG TAB PO PRN (10:15)
[2023-04-10] MEDS ORDERED: Acetaminophen 650 MG Suppository PR PRN (12:42)
[2023-04-10] MEDS ORDERED: traMADol HCl 50 MG TAB PO PRN (12:42)
[2023-04-10] MEDS: Atorvastatin Calcium 10 MG TAB PO SCH (19:54)
[2023-04-10] MEDS: Gabapentin 100 MG CAP PO SCH (19:54)
[2023-04-10] MEDS: Tamsulosin HCl 0.4 MG CAP PO SCH (19:55)
[2023-04-10] MEDS: Lantus 1000 UNITS/10 ML VIAL SC SCH (19:55)
[2023-04-11] MEDS: Acetaminophen 325 MG TAB PO PRN (09:39)
[2023-04-11] MEDS: Cefdinir 300 MG CAP PO SCH ×2 (09:40→20:26)
[2023-04-11] MEDS: Sodium Bicarbonate Tab 325 MG TAB PO SCH ×3 (09:40→20:27)
[2023-04-11] MEDS: Famotidine 20 MG TAB PO SCH ×2 (09:40→20:27)
[2023-04-11] MEDS: Phenazopyridine HCl 95 MG TAB PO SCH ×2 (09:40→20:29)
[2023-04-11] MEDS: HumaLOG 300 UNITS/3 ML VIAL SC PRN ×2 (12:15→16:42)
[2023-04-11] MEDS: Gabapentin 100 MG CAP PO SCH (20:26)
[2023-04-11] MEDS: Tamsulosin HCl 0.4 MG CAP PO SCH (20:26)
[2023-04-11] MEDS: Lantus 1000 UNITS/10 ML VIAL SC SCH (20:27)
[2023-04-11] MEDS: Atorvastatin Calcium 10 MG TAB PO SCH (20:27)
[2023-04-12] MEDS: Phenazopyridine HCl 95 MG TAB PO SCH (01:26)
[2023-04-12] MEDS: Sodium Bicarbonate Tab 325 MG TAB PO SCH ×3 (08:04→20:37)
[2023-04-12] MEDS: Cefdinir 300 MG CAP PO SCH ×2 (08:04→20:37)
[2023-04-12] MEDS: Famotidine 20 MG TAB PO SCH ×2 (08:04→20:37)
[2023-04-12] MEDS ORDERED: Fluconazole 100 MG TAB PO SCH (12:00)
[2023-04-12] MEDS: HumaLOG 300 UNITS/3 ML VIAL SC PRN (12:49)
[2023-04-12] MEDS ORDERED: Heparin 5,000 UNITS/ML VIAL SC SCH (15:00)
[2023-04-12] MEDS: Lantus 1000 UNITS/10 ML VIAL SC SCH (20:35)
[2023-04-12] MEDS: Atorvastatin Calcium 10 MG TAB PO SCH (20:37)
[2023-04-12] MEDS: Tamsulosin HCl 0.4 MG CAP PO SCH (20:37)
[2023-04-12] MEDS: Gabapentin 100 MG CAP PO SCH (20:37)
[2023-04-13] MEDS ORDERED: Fluconazole 100 MG TAB PO SCH (09:00)
[2023-04-13] MEDS: Cefdinir 300 MG CAP PO SCH ×2 (09:12→20:28)
[2023-04-13] MEDS: Heparin 5,000 UNITS/ML VIAL SC SCH ×3 (09:12→20:27)
[2023-04-13] MEDS: Sodium Bicarbonate Tab 325 MG TAB PO SCH ×3 (09:12→20:27)
[2023-04-13] MEDS: Famotidine 20 MG TAB PO SCH ×2 (09:12→20:28)
[2023-04-13] MEDS: Acetaminophen 325 MG TAB PO PRN (09:30)
[2023-04-13] MEDS: HumaLOG 300 UNITS/3 ML VIAL SC PRN (11:19)
[2023-04-13 13:38] LABS: Bilirubin Negative (Negative); Blood, Urine Trace (Negative); Clarity Clear (Clear); Glucose, Urine (Dipstick) Negative (Negative); Ketone, Urine Negative (Negative); Leukocyte Trace (Negative); Nitrite Negative (Negative); Protein, Urine (Dipstick) 30 mg/dL (Neg-Trace); Urobilinogen 0.2 mg/dL (Less than 2)
[2023-04-13 13:40] LABS: CAUTI Indications for Culture Dysuria,urgency,freq
[2023-04-13 13:43] LABS: Bacteria/HPF None Seen HPF (None Seen); RBC/HPF 0-3 HPF (0-3); Squamous Epithelial None Seen HPF (0-3); Urine Culture Reflex No No; WBC/HPF 0-3 HPF (0-3)
[2023-04-13] MEDS: Lantus 1000 UNITS/10 ML VIAL SC SCH (20:26)
[2023-04-13] MEDS: Tamsulosin HCl 0.4 MG CAP PO SCH (20:28)
[2023-04-13] MEDS: Gabapentin 100 MG CAP PO SCH (20:28)
[2023-04-13] MEDS: Atorvastatin Calcium 10 MG TAB PO SCH (20:28)
[2023-04-14] MEDS: Famotidine 20 MG TAB PO SCH ×2 (08:20→20:40)
[2023-04-14] MEDS: Sodium Bicarbonate Tab 325 MG TAB PO SCH ×3 (08:20→20:40)
[2023-04-14] MEDS: Cefdinir 300 MG CAP PO SCH ×2 (08:20→20:40)
[2023-04-14] MEDS: Heparin 5,000 UNITS/ML VIAL SC SCH ×3 (08:22→20:39)
[2023-04-14] MEDS: HumaLOG 300 UNITS/3 ML VIAL SC PRN (12:27)
[2023-04-14] MEDS: Lantus 1000 UNITS/10 ML VIAL SC SCH (20:37)
[2023-04-14] MEDS: Gabapentin 100 MG CAP PO SCH (20:40)
[2023-04-14] MEDS: Tamsulosin HCl 0.4 MG CAP PO SCH (20:40)
[2023-04-14] MEDS: Atorvastatin Calcium 10 MG TAB PO SCH (20:40)
[2023-04-15] MEDS: Sodium Bicarbonate Tab 325 MG TAB PO SCH ×3 (09:01→20:57)
[2023-04-15] MEDS: Heparin 5,000 UNITS/ML VIAL SC SCH ×3 (09:01→20:59)
[2023-04-15] MEDS: Famotidine 20 MG TAB PO SCH (20:57)
[2023-04-15] MEDS: Gabapentin 100 MG CAP PO SCH (20:57)
[2023-04-15] MEDS: Tamsulosin HCl 0.4 MG CAP PO SCH (20:58)
[2023-04-15] MEDS: Atorvastatin Calcium 10 MG TAB PO SCH (20:58)
[2023-04-15] MEDS: Lantus 1000 UNITS/10 ML VIAL SC SCH (20:59)
[2023-04-16 09:38] LABS: #Lymphocytes 1.2 thou/uL (1.20-3.40); #Monocytes 0.2 thou/uL (0.11-0.59); #Neutrophils 2.1 thou/uL (1.40-6.50); %Basophils 0.8 % (0.0-1.0); %Eosinophils 1.4 % (0.0-10.0); %Lymphocytes 32.5 % (21.0-51.0); %Monocytes 6.1 % (0.0-10.0); %Neutrophils 59.2 % (42.0-75.0); Hematocrit 23.8 % (42.0-52.0); Hemoglobin 7.7 g/dL (14.0-18.0); Mean Corpuscular HGB CONC 32.3 g/dL (32.0-36.0); Mean Corpuscular Hemoglobin 29.2 pg (27.0-31.0); Mean Corpuscular Volume 90.5 fl (78.0-98.0); Mean Platelet Volume 7.2 fL (7.4-10.4); Platelet Count 165 10x3/uL (130-400); RBC Distribution Width 15.7 % (11.5-14.5); Red Blood Cell (RBC) Count 2.63 mill/uL (4.70-6.10); White Blood Cell (WBC) Count 3.6 10x3/uL (4.8-10.8)
[2023-04-16 09:43] LABS: Anion Gap 13 mmol/L (10-20); BUN (Urea Nitrogen) 68 mg/dL (8.4-25.7); Calc. Creatinine Clearance 21 mL/min (70-130); Calcium 8.7 mg/dL (7.8-10.44); Carbon Dioxide 27 mmol/L (23-31); Chloride 106 mmol/L (98-107); Estimated GFR 16; Glucose 133 mg/dL (83-110); Potassium 5.5 mmol/L (3.5-5.1); Sodium 140 mmol/L (136-145)
[2023-04-16] MEDS: Heparin 5,000 UNITS/ML VIAL SC SCH ×3 (10:19→20:35)
[2023-04-16] MEDS: Sodium Bicarbonate Tab 325 MG TAB PO SCH ×3 (10:19→20:37)
[2023-04-16] MEDS: Famotidine 20 MG TAB PO SCH (20:34)
[2023-04-16] MEDS: Atorvastatin Calcium 10 MG TAB PO SCH (20:34)
[2023-04-16] MEDS: Tamsulosin HCl 0.4 MG CAP PO SCH (20:35)
[2023-04-16] MEDS: Gabapentin 100 MG CAP PO SCH (20:35)
[2023-04-16] MEDS: Lantus 1000 UNITS/10 ML VIAL SC SCH (20:36)
[2023-04-17] MEDS: Heparin 5,000 UNITS/ML VIAL SC SCH ×3 (08:04→21:19)
[2023-04-17] MEDS: Sodium Bicarbonate Tab 325 MG TAB PO SCH ×3 (08:04→21:20)
[2023-04-17 10:12] LABS: #Eosinphils 0.1 thou/uL (0.0-0.7); #Lymphocytes 1.1 thou/uL (1.20-3.40); #Monocytes 0.2 thou/uL (0.11-0.59); #Neutrophils 2.6 thou/uL (1.40-6.50); %Basophils 0.4 % (0.0-1.0); %Eosinophils 1.3 % (0.0-10.0); %Lymphocytes 27.7 % (21.0-51.0); %Monocytes 5.4 % (0.0-10.0); %Neutrophils 65.1 % (42.0-75.0); Hematocrit 24.2 % (42.0-52.0); Hemoglobin 7.8 g/dL (14.0-18.0); Mean Corpuscular HGB CONC 32.2 g/dL (32.0-36.0); Mean Corpuscular Hemoglobin 29.3 pg (27.0-31.0); Mean Platelet Volume 6.4 fL (7.4-10.4); Platelet Count 152 10x3/uL (130-400); Red Blood Cell (RBC) Count 2.66 mill/uL (4.70-6.10)
[2023-04-17 10:14] LABS: Anion Gap 12 mmol/L (10-20); BUN (Urea Nitrogen) 69 mg/dL (8.4-25.7); Calc. Creatinine Clearance 20 mL/min (70-130); Calcium 8.8 mg/dL (7.8-10.44); Carbon Dioxide 25 mmol/L (23-31); Chloride 108 mmol/L (98-107); Estimated GFR 16; Glucose 135 mg/dL (83-110); Potassium 5.1 mmol/L (3.5-5.1); Sodium 140 mmol/L (136-145)
[2023-04-17] MEDS: Lantus 1000 UNITS/10 ML VIAL SC SCH (21:18)
[2023-04-17] MEDS: Tamsulosin HCl 0.4 MG CAP PO SCH (21:19)
[2023-04-17] MEDS: Famotidine 20 MG TAB PO SCH (21:20)
[2023-04-17] MEDS: Atorvastatin Calcium 10 MG TAB PO SCH (21:20)
[2023-04-17] MEDS: Gabapentin 100 MG CAP PO SCH (21:20)
[2023-04-18] MEDS: Heparin 5,000 UNITS/ML VIAL SC SCH ×3 (09:07→21:16)
[2023-04-18] MEDS: Sodium Bicarbonate Tab 325 MG TAB PO SCH ×3 (09:07→21:16)
[2023-04-18] MEDS: Lantus 1000 UNITS/10 ML VIAL SC SCH (21:15)
[2023-04-18] MEDS: Gabapentin 100 MG CAP PO SCH (21:16)
[2023-04-18] MEDS: Famotidine 20 MG TAB PO SCH (21:16)
[2023-04-18] MEDS: Tamsulosin HCl 0.4 MG CAP PO SCH (21:16)
[2023-04-18] MEDS: Atorvastatin Calcium 10 MG TAB PO SCH (21:16)
[2023-04-19] MEDS: Sodium Bicarbonate Tab 325 MG TAB PO SCH ×3 (08:22→21:10)
[2023-04-19] MEDS: Heparin 5,000 UNITS/ML VIAL SC SCH ×3 (08:22→21:08)
[2023-04-19] MEDS: Lantus 1000 UNITS/10 ML VIAL SC SCH (21:06)
[2023-04-19] MEDS: Tamsulosin HCl 0.4 MG CAP PO SCH (21:10)
[2023-04-19] MEDS: Gabapentin 100 MG CAP PO SCH (21:10)
[2023-04-19] MEDS: Famotidine 20 MG TAB PO SCH (21:10)
[2023-04-19] MEDS: Atorvastatin Calcium 10 MG TAB PO SCH (21:10)
[2023-04-20 04:48] LABS: #Eosinphils 0.1 thou/uL (0.0-0.7); #Lymphocytes 1.3 thou/uL (1.20-3.40); #Monocytes 0.2 thou/uL (0.11-0.59); #Neutrophils 1.6 thou/uL (1.40-6.50); %Basophils 0.9 % (0.0-1.0); %Eosinophils 2.7 % (0.0-10.0); %Lymphocytes 41.2 % (21.0-51.0); %Monocytes 5.4 % (0.0-10.0); %Neutrophils 49.8 % (42.0-75.0); Hematocrit 24.2 % (42.0-52.0); Hemoglobin 7.7 g/dL (14.0-18.0); Mean Corpuscular HGB CONC 31.9 g/dL (32.0-36.0); Mean Corpuscular Hemoglobin 29.1 pg (27.0-31.0); Mean Platelet Volume 7.3 fL (7.4-10.4); Platelet Count 108 10x3/uL (130-400); RBC Distribution Width 15.3 % (11.5-14.5); Red Blood Cell (RBC) Count 2.66 mill/uL (4.70-6.10); White Blood Cell (WBC) Count 3.1 10x3/uL (4.8-10.8)
[2023-04-20 05:04] LABS: Anion Gap 12 mmol/L (10-20); BUN (Urea Nitrogen) 67 mg/dL (8.4-25.7); Calc. Creatinine Clearance 22 mL/min (70-130); Calcium 8.9 mg/dL (7.8-10.44); Carbon Dioxide 24 mmol/L (23-31); Chloride 110 mmol/L (98-107); Estimated GFR 18; Glucose 95 mg/dL (83-110); Potassium 5.1 mmol/L (3.5-5.1); Sodium 141 mmol/L (136-145)
[2023-04-20 05:07] VITALS: BMI 24.4
[2023-04-20] MEDS: Heparin 5,000 UNITS/ML VIAL SC SCH ×3 (08:17→21:24)
[2023-04-20] MEDS: Sodium Bicarbonate Tab 325 MG TAB PO SCH ×3 (08:17→21:25)
[2023-04-20] MEDS: Acetaminophen 325 MG TAB PO PRN (19:47)
[2023-04-20] MEDS: Tamsulosin HCl 0.4 MG CAP PO SCH (21:24)
[2023-04-20] MEDS: Lantus 1000 UNITS/10 ML VIAL SC SCH (21:24)
[2023-04-20] MEDS: Gabapentin 100 MG CAP PO SCH (21:24)
[2023-04-20] MEDS: Atorvastatin Calcium 10 MG TAB PO SCH (21:25)
[2023-04-20] MEDS: Famotidine 20 MG TAB PO SCH (21:25)
[2023-04-21] MEDS: Heparin 5,000 UNITS/ML VIAL SC SCH ×3 (08:31→21:21)
[2023-04-21] MEDS: Sodium Bicarbonate Tab 325 MG TAB PO SCH ×3 (08:31→21:21)
[2023-04-21 13:36] LABS: Iron 79 ug/dL (65-175); Iron Binding Capacity, Total 194 mcg/dL (261-462)
[2023-04-21] MEDS: Gabapentin 100 MG CAP PO SCH (21:21)
[2023-04-21] MEDS: Tamsulosin HCl 0.4 MG CAP PO SCH (21:21)
[2023-04-21] MEDS: Atorvastatin Calcium 10 MG TAB PO SCH (21:22)
[2023-04-21] MEDS: Lantus 1000 UNITS/10 ML VIAL SC SCH (21:22)
[2023-04-21] MEDS: Famotidine 20 MG TAB PO SCH (21:22)
[2023-04-22 05:57] LABS: #Eosinphils 0.1 thou/uL (0.0-0.7); #Lymphocytes 1.2 thou/uL (1.20-3.40); #Monocytes 0.2 thou/uL (0.11-0.59); #Neutrophils 1.6 thou/uL (1.40-6.50); %Basophils 0.7 % (0.0-1.0); %Eosinophils 3.7 % (0.0-10.0); %Lymphocytes 38.6 % (21.0-51.0); %Neutrophils 51.1 % (42.0-75.0); Hematocrit 23.3 % (42.0-52.0); Hemoglobin 7.7 g/dL (14.0-18.0); Mean Corpuscular HGB CONC 33.1 g/dL (32.0-36.0); Mean Corpuscular Hemoglobin 29.4 pg (27.0-31.0); Mean Corpuscular Volume 88.9 fl (78.0-98.0); Mean Platelet Volume 7.3 fL (7.4-10.4); Platelet Count 89 10x3/uL (130-400); RBC Distribution Width 15.5 % (11.5-14.5); Red Blood Cell (RBC) Count 2.62 mill/uL (4.70-6.10); White Blood Cell (WBC) Count 3.1 10x3/uL (4.8-10.8)
[2023-04-22] MEDS: Heparin 5,000 UNITS/ML VIAL SC SCH (09:13)
[2023-04-22] MEDS: Sodium Bicarbonate Tab 325 MG TAB PO SCH ×3 (09:49→20:55)
[2023-04-22] MEDS: Apixaban 2.5 MG TAB PO SCH ×2 (10:29→20:55)
[2023-04-22] MEDS: Famotidine 20 MG TAB PO SCH (20:54)
[2023-04-22] MEDS: Atorvastatin Calcium 10 MG TAB PO SCH (20:54)
[2023-04-22] MEDS: Tamsulosin HCl 0.4 MG CAP PO SCH (20:54)
[2023-04-22] MEDS: Gabapentin 100 MG CAP PO SCH (20:55)
[2023-04-22] MEDS: Lantus 1000 UNITS/10 ML VIAL SC SCH (20:55)
[2023-04-23 06:02] LABS: Anion Gap 13 mmol/L (10-20); BUN (Urea Nitrogen) 68 mg/dL (8.4-25.7); Calc. Creatinine Clearance 24 mL/min (70-130); Calcium 8.8 mg/dL (7.8-10.44); Carbon Dioxide 22 mmol/L (23-31); Chloride 109 mmol/L (98-107); Estimated GFR 19; Glucose 75 mg/dL (83-110); Sodium 139 mmol/L (136-145)
[2023-04-23] MEDS: Acetaminophen 325 MG TAB PO PRN (08:29)
[2023-04-23] MEDS: Apixaban 2.5 MG TAB PO SCH ×2 (08:29→21:34)
[2023-04-23] MEDS: Sodium Bicarbonate Tab 325 MG TAB PO SCH ×3 (08:29→21:32)
[2023-04-23] MEDS ORDERED: Lantus 1000 UNITS/10 ML VIAL SC SCH (14:52)
[2023-04-23] MEDS: Atorvastatin Calcium 10 MG TAB PO SCH (21:32)
[2023-04-23] MEDS: Famotidine 20 MG TAB PO SCH (21:32)
[2023-04-23] MEDS: Gabapentin 100 MG CAP PO SCH (21:32)
[2023-04-23] MEDS: Tamsulosin HCl 0.4 MG CAP PO SCH (21:34)
[2023-04-24] MEDS: Sodium Bicarbonate Tab 325 MG TAB PO SCH ×3 (08:18→20:49)
[2023-04-24] MEDS: Apixaban 2.5 MG TAB PO SCH ×2 (08:18→20:49)
[2023-04-24] MEDS ORDERED: Lantus 1000 UNITS/10 ML VIAL SC SCH (08:20)
[2023-04-24] MEDS: Gabapentin 100 MG CAP PO SCH (20:49)
[2023-04-24] MEDS: Famotidine 20 MG TAB PO SCH (20:49)
[2023-04-24] MEDS: Tamsulosin HCl 0.4 MG CAP PO SCH (20:49)
[2023-04-24] MEDS: Atorvastatin Calcium 10 MG TAB PO SCH (20:50)
[2023-04-25 07:20] VITALS: BP 138/66; TEMP 98.1
[2023-04-25] MEDS: Apixaban 2.5 MG TAB PO SCH (08:07)
[2023-04-25] MEDS: Sodium Bicarbonate Tab 325 MG TAB PO SCH (08:07)
== END 2023-04-25 12:08 | disposition home or self-care (01) | DRG 690 ==
LOC: NAV ACUTE 16:19
PROVIDERS: ADMIT Family Medicine; ATTEND Family Medicine
PROC: 0T9B70Z Drainage of Bladder with Drainage Device, Via Natural or Artificial Opening (ICD-10-PCS; principal; 2023-04-12)
DX: N39.0 Urinary tract infection, site not specified (principal); N18.5 Chronic kidney disease, stage 5; I12.0 Hypertensive chronic kidney disease with stage 5 chronic kidney disease or end stage renal disease; R78.81 Bacteremia; E78.5 Hyperlipidemia, unspecified; E11.22 Type 2 diabetes mellitus with diabetic chronic kidney disease; N40.1 Benign prostatic hyperplasia with lower urinary tract symptoms; R33.8 Other retention of urine; E11.40 Type 2 diabetes mellitus with diabetic neuropathy, unspecified; B96.1 Klebsiella pneumoniae [K. pneumoniae] as the cause of diseases classified elsewhere; D63.1 Anemia in chronic kidney disease; E87.5 Hyperkalemia; Z79.899 Other long term (current) drug therapy; Z79.4 Long term (current) use of insulin; Z98.890 Other specified postprocedural states; Z87.891 Personal history of nicotine dependence
CPT/HCPCS: 36415; 36416; 80048; 81001; 83540; 83550; 85025; J1644; J1650; J1815

== ENCOUNTER 2023-05-31 12:00 | Emergency (ER) | payer MEDICARE, OTHER ==
[2023-05-31 12:45] LABS: Bilirubin Negative (Negative); Blood, Urine Moderate (Negative); Glucose, Urine (Dipstick) Negative (Negative); Ketone, Urine Negative (Negative); Leukocyte Small (Negative); Nitrite Negative (Negative); Protein, Urine (Dipstick) 30 mg/dL (Neg-Trace); Specific Gravity, Urine 1.015 (1.005-1.030); Urobilinogen 0.2 mg/dL (Less than 2); pH, Urine 6.5 (5.0-9.0)
[2023-05-31 12:50] LABS: CAUTI Indications for Culture Urological Procedure; Clarity Hazy (Clear); RBC/HPF 0-3 HPF (0-3); Squamous Epithelial 0-3 HPF (0-3); WBC/HPF 21-50 HPF (0-3)
[2023-05-31 12:51] LABS: Urine Culture Reflex Yes Yes
[2023-05-31] MEDS ORDERED: Cephalexin 250 MG CAP ONE (13:02)
== END 2023-05-31 13:05 | disposition home or self-care (01) ==
LOC: NAV ERS 12:00
DX: T83.098A Other mechanical complication of other urinary catheter, initial encounter (principal); N30.00 Acute cystitis without hematuria; E11.9 Type 2 diabetes mellitus without complications; I10 Essential (primary) hypertension
CPT/HCPCS: 51702; 81001; 87077; 87086; 87186

== ENCOUNTER 2023-06-18 09:15 | Emergency (ER) | payer MEDICARE, OTHER | END 2023-06-18 10:05 | disposition home or self-care (01) | LOC: NAV ERS 09:15 | DX: T83.031A Leakage of indwelling urethral catheter, initial encounter (principal); E78.00 Pure hypercholesterolemia, unspecified; E11.9 Type 2 diabetes mellitus without complications; I10 Essential (primary) hypertension; Z79.899 Other long term (current) drug therapy; Z79.84 Long term (current) use of oral hypoglycemic drugs | CPT/HCPCS: 99283 ==

== ENCOUNTER 2023-12-16 14:37 | Emergency (ER) | payer OTHER, MEDICARE ==
[2023-12-16 16:09] LABS: ALT (SGPT) Less than 7 U/L (8-55); AST (SGOT) 11 U/L (5-34); Albumin 3.6 g/dL (3.4-4.8); Alkaline Phosphatase 62 U/L (40-110); Anion Gap 16 mmol/L (10-20); BUN (Urea Nitrogen) 30 mg/dL (8.4-25.7); Bilirubin, Total 1.1 mg/dL (0.2-1.2); CK (CPK) 89 U/L (30-200); Calc. Creatinine Clearance 0 mL/min (70-130); Calcium 8.6 mg/dL (7.8-10.44); Carbon Dioxide 17 mmol/L (23-31); Chloride 114 mmol/L (98-107); Estimated GFR 24; Globulin 2.6 g/dL (2.4-3.5); Glucose 121 mg/dL (83-110); Hematocrit 31.1 % (42.0-52.0); Hemoglobin 9.6 g/dL (14.0-18.0); Manual Diff?? NO; Mean Corpuscular HGB CONC 30.7 g/dL (32.0-36.0); Mean Corpuscular Hemoglobin 26.8 pg (27.0-31.0); Mean Corpuscular Volume 87.1 fl (78.0-98.0); Mean Platelet Volume 7.2 fL (7.4-10.4); Platelet Count 110 10x3/uL (130-400); Potassium 4.4 mmol/L (3.5-5.1); Protein, Total 6.2 g/dL (5.8-8.1); RBC Distribution Width 14.5 % (11.5-14.5); Red Blood Cell (RBC) Count 3.57 mill/uL (4.70-6.10); Sodium 143 mmol/L (136-145); White Blood Cell (WBC) Count 4.1 10x3/uL (4.8-10.8)
[2023-12-16 16:10] LABS: #Lymphocytes 0.8 thou/uL (1.20-3.40); #Monocytes 0.2 thou/uL (0.11-0.59); #Neutrophils 3.1 thou/uL (1.40-6.50); %Basophils 0.6 % (0.0-1.0); %Eosinophils 0.5 % (0.0-10.0); %Lymphocytes 18.8 % (21.0-51.0); %Monocytes 4.7 % (0.0-10.0); %Neutrophils 75.4 % (42.0-75.0)
[2023-12-16 16:11] LABS: Troponin I Less than 0.010 ng/mL (< 0.028)
[2023-12-16 19:48] LABS: Troponin I 0.015 ng/mL (< 0.028)
== END 2023-12-16 20:17 | disposition short-term general hospital (02) ==
LOC: NAV ERS 14:37
DX: R55 Syncope and collapse (principal); E86.0 Dehydration; D64.9 Anemia, unspecified; I10 Essential (primary) hypertension; E78.00 Pure hypercholesterolemia, unspecified; E11.9 Type 2 diabetes mellitus without complications; Z79.899 Other long term (current) drug therapy; Z79.84 Long term (current) use of oral hypoglycemic drugs
CPT/HCPCS: 36415; 80053; 80307; 82550; 84484; 85025; 93005

== ENCOUNTER 2025-02-14 17:48 | Emergency (ER) | payer MEDICARE ==
[2025-02-14 18:50] LABS: #Basophils 0.1 thou/uL (0.0-0.2); #Eosinophils 0.1 thou/uL (0.0-0.7); #Lymphocytes 1.3 thou/uL (1.20-3.40); #Monocytes 0.5 thou/uL (0.11-0.59); #Neutrophils 3.5 thou/uL (1.40-6.50); %Basophils 2.7 % (0.0-1.0); %Eosinophils 1.4 % (0.0-10.0); %Lymphocytes 24.1 % (21.0-51.0); %Monocytes 8.8 % (0.0-10.0); %Neutrophils 63.0 % (42.0-75.0); Hematocrit 35.4 % (42.0-52.0); Hemoglobin 11.9 g/dL (14.0-18.0); Mean Corpuscular Hemoglobin 28.8 pg (27.0-31.0); Mean Corpuscular Volume 85.5 fl (78.0-98.0); Platelet Count 154 10x3/uL (130-400); Red Blood Cell (RBC) Count 4.14 mill/uL (4.70-6.10); White Blood Cell (WBC) Count 5.6 10x3/uL (4.8-10.8)
[2025-02-14 19:02] LABS: ALT (SGPT) 7 U/L (Less than 45); AST (SGOT) 26 U/L (11-34); Albumin 4.3 g/dL (3.1-4.5); Alkaline Phosphatase 61 U/L (40-110); Anion Gap 19 mmol/L (10-20); BUN (Urea Nitrogen) 31 mg/dL (8.4-25.7); Bilirubin, Total 1.5 mg/dL (0.3-1.2); Calc. Creatinine Clearance 0 mL/min (70-130); Calcium 9.0 mg/dL (7.8-10.44); Carbon Dioxide 20 mmol/L (23-31); Chloride 108 mmol/L (98-107); Globulin 3.2 g/dL (2.4-3.5); Glucose 91 mg/dL (83-110); Potassium 5.1 mmol/L (3.5-5.1); Sodium 142 mmol/L (136-145)
[2025-02-14] MEDS ORDERED: Amoxicillin/Potassium Clav 875 MG TAB ONE (19:19)
== END 2025-02-14 19:41 | disposition home or self-care (01) ==
LOC: NAV ERS 17:48
DX: L03.032 Cellulitis of left toe (principal); E78.00 Pure hypercholesterolemia, unspecified; E11.9 Type 2 diabetes mellitus without complications; I10 Essential (primary) hypertension; Z79.84 Long term (current) use of oral hypoglycemic drugs; Z79.4 Long term (current) use of insulin; Z79.899 Other long term (current) drug therapy
CPT/HCPCS: 80053; 85025; 99283